=== PATIENT | female | born 1995 | race Caucasian/White ===

== ENCOUNTER 2018-09-09 08:00 | Inpatient (IN) | payer OTHER ==
[~2018-09-09] VITALS: Ht 154.9 cm; Wt 67.8 kg
[2018-09-09 08:42] VITALS: Ht 154.9 cm; Wt 67.8 kg
[2018-09-09 09:01] VITALS: BP 123/75; PULSE 102; RESP 19
[2018-09-09] MEDS ORDERED: LACTATED RINGER'S 1,000 ML IV PRN ×2 (09:09→09:53)
[2018-09-09] MEDS ORDERED: LACTATED RINGER'S 1,000 ML IV SCH ×2 (09:13→12:51)
[2018-09-09] MEDS ORDERED: LIDOCAINE 1% (MPF) 30 ML INJ INJ PRN (09:30)
[2018-09-09] MEDS ORDERED: OXYTOCIN 30 UNITS/LR 500 ML IV SCH ×3 (09:30→12:51)
[2018-09-09] MEDS ORDERED: OXYTOCIN 30 UNITS/LR 500 ML IV PRN ×2 (09:30→13:00)
[2018-09-09] MEDS ORDERED: MISOPROSTOL 200 MCG TAB PR PRN ×2 (09:30→13:00)
[2018-09-09] MEDS ORDERED: METHYLERGONOVINE 0.2 MG INJ IM PRN ×2 (09:30→13:00)
[2018-09-09] MEDS ORDERED: CARBOPROST 250 MCG INJ IM PRN ×2 (09:30→13:00)
[2018-09-09] MEDS ORDERED: PREN-93 PO (09:59)
[2018-09-09] MEDS ORDERED: IBUPROFEN 600 MG TAB PO PRN (10:00)
[2018-09-09] MEDS ORDERED: MINERAL OIL LIGHT 10 ML VIAL TOP ONE (10:00)
[2018-09-09] MEDS ORDERED: CEFAZOLIN 2 GM/50 ML (PMX) 50 ML IVPB ONE (11:30)
--- NOTE | 2018-09-09 11:37 | PREAC ---
Date/Time of Note Date/Time of Note DATE: 09/09/18 TIME: 11:36 Anesthesia Eval and Record Evaluation Time Pre-Procedure Interview DATE: 09/09/18 TIME: 11:36 Age 23 Sex female NPO: 8 hrs Preoperative diagnosis IUP Planned procedure Csection Past Medical History Past Medical History: None Surgery & Anesthesia Issues No known issue Meds Anticoagulation: No Beta Rene within 24 hr: No Reason Beta Rene not given: Pt. not on B-Rene Reported Medications Vit No.124/Iron/FA ( Vitamin Tablet) 1 Each Tablet, 1 EACH PO DAILY, TAB 09/09/18 Current Medications Lidocaine (Xylocaine 1% (Mpf)) 30 ml ONCE PRN INJ .EPISIOTOMY; Start 09/09/18 at 09:30 Oxytocin/Lactated Ringer's 500 ml @ 500 mls/hr ONCE POST IV ; Start 09/09/18 at 09:30 Oxytocin/Lactated Ringer's 500 ml @ 125 mls/hr POST IV ; Start 09/09/18 at 09:30 Oxytocin/Lactated Ringer's 500 ml @ 0 mls/hr ONCE PRN IV .VAGINAL BLEEDING; Start 09/09/18 at 09:30 Methylergonovine Maleate (Methergine) 0.2 mg ONCE PRN IM .VAGINAL BLEEDING; Start 09/09/18 at 09:30 Carboprost Tromethamine (Hemabate) 250 mcg ONCE PRN IM .VAGINAL BLEEDING; Start 09/09/18 at 09:30 Misoprostol (Cytotec) 1,000 mcg ONCE PRN AR .VAGINAL BLEEDING; Start 09/09/18 at 09:30 Lactated Ringer's 1,000 ml @ 2,000 mls/hr Q30M PRN IV .ANESTHESIA; Start 09/09/18 at 09:09 Lactated Ringer's 1,000 ml @ 125 mls/hr Q8H IV Last administered on 09/09/18at 09:16; Admin Dose 125 MLS/HR; Start 09/09/18 at 09:13 Ibuprofen (Motrin) 600 mg ONCE PRN PO .PAIN 1-5; Start 09/09/18 at 10:00 Lactated Ringer's 1,000 ml @ 2,000 mls/hr Q30M PRN IV .ANESTHESIA Last administered on 4/15/19at 10:57; Admin Dose 2,000 MLS/HR; Start 09/09/18 at 09:53 Misoprostol (Cytotec 50 Mcg Capsule) 50 mcg Q4 VAG ; Start 09/09/18 at 13:00 Cefazolin Sodium/ Dextrose 50 ml @ 100 mls/hr ONCE ONCE IVPB ; Start 09/09/18 at 11:30; Stop 09/09/18 at 11:59 Meds reviewed: Yes Allergies Coded Allergies: No Known Allergy (Unverified , 09/09/18) Allergies Reviewed: Yes Labs/Studies Labs Reviewed: Reviewed by anesthesiologist Result Diagram: 09/09/18 0910 Laboratory Tests 09/09/18 09:10 Blood Bank Test 09/09/18 09:10 Antibody Screen NEGATIVE Blood Type AB POSITIVE Rh Immune Globulin Candidate NO test: Positive Studies: ECG Pre-procedure Exam Last vitals Vital Signs Date Temp Pulse Resp B/P (MAP) Pulse Ox O2 O2 Flow FiO2 Time Delivery Rate 09/09/18 98.8 102 19 123/75 Room Air 09:01 (91) Airway: Adequate mouth opening, Adequate thyromental dist Mallampati: Mallampati II Teeth: Normal Lung: Normal Heart: Normal ASA Physical Status ASA physical status: 2 Emergency: None Planned Anesthetic Neuraxial: Spinal Planned Pain Management Sub-arachniod narcotics, Parenteral pain med Pre-operative Attestations Prior to commencing anesthesia and surgery, the patient was re-evaluated, there was verification of: *The patient's identity *The results of appropriate recent lab work and preoperative vital signs *The above evaluation not changing prior to induction *Anesthetic plan, risk benefits, alternative and complications discussed with patient/family; questions answered; patient/family understands, accepts and wishes to proceed. MELVIN LAL MD Sep 09, 2018 11:37
[2018-09-09] MEDS ORDERED: morphine SULFATE/PF (10 MG/10 ML) INJ ONE (11:45)
[2018-09-09] MEDS ORDERED: OXYTOCIN 10 UNIT INJ ONE (11:45)
[2018-09-09] MEDS ORDERED: ONDANSETRON 4 MG INJ ONE (11:45)
[2018-09-09] MEDS ORDERED: PHENYLephrine 10 MG INJ ONE (11:46)
--- NOTE | 2018-09-09 12:48 | PREOPHP ---
DATE OF ADMISSION: 09/09/2018 HISTORY OF PRESENT ILLNESS: This is a 23-year-old female, 1, para 0 with an EDC of 9. Patient had seen me for care for late and she came in late in her and at this time she has all her laboratory testing with a 3-hour GTT and any other tests that was perfo rming . GBS is negative. The patient has been scheduled today for induction due to the pre gnancy was passed 3 days and she is only 5 feet tall. The patient had an ultrasound just done this t ngoc for estimation of the baby's weight, which was assessed at over 9 pounds and she was advised for a section due to the patient's height is only 5 feet and baby's estimated as 9 pounds on the cervical exam she was fingertip and 50% effaced and the baby was -3. Membranes were intact. EXTREMITIES: Normal. The patient physical examination after review of her medical condition, there is no medical, surgical condition in her past. There is no medical antecedents. REVIEW OF SYSTEMS: Noncontributory. FAMILY HISTORY: Hypertension. ALLERGIES: She is not allergic to any medication. SOCIAL HISTORY: She does not drink or smoke. PHYSICAL EXAMINATION: VITAL SIGNS: Blood pressure is normal 120/80, pulse is 80, respirations 16. She is afebrile. HEAD AND NECK: Normal. CHEST: Clear. HEART: Normal sinus rhythm. LUNGS: Clear. BREASTS: Soft, nontender, no masses. ABDOMEN: Soft. Uterus is at term with a large presentation. Normal heart tones. Pelvic exam ination again fingertip dilated, 50% effaced, membranes intact and -3 station. EXTREMITIES: Normal with normal pulses and no edema. Normal reflexes. DIAGNOSIS: 40 and 3 days of with CPD she is undergoing with a macrosomic child. She is un dergoing a primary section. She has been advised of the possible risks and possible complic ations of the procedure with her alternatives and options. Written information was provided. She calero d no more questions and agreed to go ahead with the procedure with full understanding and no more que stions. Dictated By: KRISTOPHER HARRINGTON/MATT Conf#: [id number] DID#: [id number] CC: KRISTOPHER FANG MD;*End*
[2018-09-09] MEDS ORDERED: MISOPROSTOL 50 MCG CAPSULE VAG SCH (13:00)
[2018-09-09] MEDS ORDERED: METHYLERGONOVINE 0.2 MG TAB PO PRN (13:00)
[2018-09-09] MEDS ORDERED: CEFAZOLIN 2 GM/50 ML (PMX) 50 ML IVPB SCH (13:00)
[2018-09-09] MEDS ORDERED: LANOLIN HPA 1 PKT TOP PRN (13:00)
[2018-09-09] MEDS ORDERED: HYDROCODONE/APAP (5/325) TAB PO PRN (13:00)
[2018-09-09] MEDS ORDERED: NA PHOSPHATE/BIPHOS 133 ML ENEMA PR PRN (13:00)
--- NOTE | 2018-09-09 13:02 | SIPON ---
Date/Time of Note Date/Time of Note DATE: 09/09/18 TIME: 13:00 Operative Report Preoperative Diagnosis term Macrosomia Short maternal height CPD Postoperative Diagnosis Same Baby boy 9 8 pound 13 ounces Operation/Procedure Performed Primary low segment transverse section Surgeon see signature line customer support assistant Dr. VARGAS SAM Anesthesia: spinal Estimated blood loss: other Transfusion Required none Specimen Placenta Grafts/Implants none Complications none KRISTOPHER FANG MD Sep 09, 2018 13:02
[2018-09-09] MEDS ORDERED: OXYTOCIN 30 UNITS/LR 500 ML IV ONE (13:05)
[2018-09-09] MEDS: OXYTOCIN 30 UNITS/LR 500 ML IV SCH ×2 (13:24→18:22)
--- NOTE | 2018-09-09 14:21 | PAC ---
Date/Time of Note Date/Time of Note DATE: 09/09/18 TIME: 14:21 Post-Anesthesia Notes Post-Anesthesia Note Last documented vital signs Vital Signs Date Temp Pulse Resp B/P (MAP) Pulse Ox O2 O2 Flow FiO2 Time Delivery Rate 09/09/18 98.8 102 19 123/75 Room Air 09:01 (91) Activity: WNL Respiratory function: WNL Cardiovascular function: WNL Mental status: Baseline Pain reasonably controlled: Yes Hydration appropriate: Yes Nausea/Vomiting absent: Yes Comments BP:112/56, P:88, Spo2:100%, T:98,9 MELVIN LAL MD Sep 09, 2018 14:21
[2018-09-09] MEDS ORDERED: DIPHENHYDRAMINE 50 MG INJ IV PRN (14:30)
[2018-09-09] MEDS ORDERED: KETOROLAC 30 MG INJ IV PRN (14:30)
[2018-09-09] MEDS ORDERED: NALOXONE (0.4 MG/ML) INJ IV PRN (14:30)
[2018-09-09] MEDS ORDERED: morphine 2 MG INJ IV PRN (14:30)
[2018-09-09] MEDS: KETOROLAC 30 MG INJ IV SCH ×3 (14:36→23:03)
[2018-09-09 15:20] VITALS: BP 106/61; PULSE 77; RESP 18
--- NOTE | 2018-09-09 15:27 | OPR ---
DATE OF OPERATION: 09/09/2018 Primary low segment transverse section. PREOPERATIVE DIAGNOSES: 1. Term , macrosomia, short maternal height and CPD. POSTOPERATIVE DIAGNOSES: 1. Term , macrosomia short maternal height and CPD. 2. Baby boy, 9, 8 pounds 13 ounces. OPERATION PERFORMED: Primary low segment transverse section. SURGEON: Kristopher Fang MD [employer] WORKER: Anjali Claire MD ANESTHESIOLOGIST: Dr. Wolf. ANESTHESIA: Spinal. PROCEDURE: The patient was given a spinal anesthesia, placed in the supine position. The Newton cath eter had been placed in the bladder. The abdomen was prepped and draped. A transverse incision was made suprapubically 2 cm up the pubic bone. The abdomen was opened in layers without difficulties. The abdominal cavity was reached. The lower uterine segment was identified. The bladder flap was ma de. The segment was very thin. An incision was made of the segment area and the incision was increa sed laterally on either side for about 3 inches. The amniotic fluid was clear. The baby's head was first tried to deliver with the vacuum that did not work and then we took the vacuum out, repositione d the baby's head and he came out normally with the pressure of the fundus. The cord was clamped and cut and the baby was handed over to the service rig operator team and the cord blood was obtained. The edd centa was removed. The uterus was swabbed out. The cervix was opened with a finger and then I wang ed gloves and cleaned out the uterus and closed the uterus in 2 layers using #0 PDS looped sutures im bedding the first line of suture. One stitch with an 0 MH chromic suture was placed for further coa gulation. Good hemostasis was achieved. Both tubes and ovaries were normal. The uterus was normal. The abdominal cavity was cleaned out and a piece of Surgicel was placed on the area of the incision . The peritoneum was closed with a 2-0 Vicryl suture. The fascia was closed with an 0 MH suture and 2-0 Vicryl for the subcutaneous tissue, and 3-0 Monocryl subcuticular to the skin. The patient tole rated the procedure well and left the OR awake and stable. Sponge counts and instrument counts were correct. Intravenous antibiotics were given for prophylaxis. Blood loss was minimal and the urine w as clear at the end of the procedure. Dictated By: KRISTOPHER HARRINGTON/MATT Conf#: [id number] DID#: [id number] CC: KRISTOPHER FANG MD;*EndCC*
[2018-09-09] MEDS: CEFAZOLIN 2 GM/50 ML (PMX) 50 ML IVPB SCH (18:19)
[2018-09-09 20:00] VITALS: BP 103/60; PULSE 82; RESP 20
[2018-09-09] MEDS: SENNA/DOCUSATE NA (8.6MG/50MG) TAB PO SCH (21:00)
[2018-09-10] MEDS: OXYTOCIN 30 UNITS/LR 500 ML IV SCH ×2 (02:16→06:17)
[2018-09-10] MEDS: CEFAZOLIN 2 GM/50 ML (PMX) 50 ML IVPB SCH ×2 (02:54→09:38)
[2018-09-10 04:24] VITALS: BP 95/52; PULSE 85; RESP 20
[2018-09-10] MEDS: KETOROLAC 30 MG INJ IV SCH ×3 (06:16→18:19)
[2018-09-10 08:00] VITALS: BP 97/57; PULSE 67; RESP 20
[2018-09-10] MEDS: SENNA/DOCUSATE NA (8.6MG/50MG) TAB PO SCH ×2 (09:37→21:36)
--- NOTE | 2018-09-10 10:41 | PN ---
Date/Time of Note Date/Time of Note DATE: 09/10/18 TIME: 10:39 Assessment/Plan Lines/Catheters IV Catheter Type (from Nrsg): Peripheral IV Subjective 24 Hr Interval Summary Day 1 post afebrile Feels good Breast-feeding Incision dry Uterus contracted Lochia normal Constitutional: no complaints Feeding: advancing diet Pain Control: mild Detailed Summary Eyes: no complaints ENT: no complaints Respiratory: no complaints Cardiovascular: no complaints Gastrointestinal: no complaints Genitourinary: no complaints Musculoskeletal: no complaints Skin: no complaints Neurologic: no complaints Endocrine: no complaints Lymphatic: no complaints Psychological: no complaints, nl mood/affect Immunologic: no complaints Exam/Review of Systems Vital Signs Vitals Vital Signs Date Temp Pulse Resp B/P (MAP) Pulse Ox O2 O2 Flow FiO2 Time Delivery Rate 09/10/18 98.7 85 20 95/52 (66) 98 Room Air 04:24 Intake and Output 09/09/18 09/09/18 09/10/18 1515:00 23:00 07:00 IntakeIntake Total 2000 ml 500 ml OutputOutput Total 1168 ml 500 ml BalanceBalance 832 ml 0 ml Exam Constitutional: alert, oriented, well developed Psych: no complaints, nl mood/affect Head: normocephalic, atraumatic Eyes: nl conjunctiva, EOMI, nl lids, nl sclera ENMT: nl external ears & nose, nl lips & teeth, nl nasal mucosa & septum, muco sa pink and moist Neck: supple, non-tender Respiratory: clear to auscultation, normal air movement Cardiovascular: regular rate and rhythm, nl pulses Gastrointestinal: soft, nl liver, spleen, non-tender Musculoskeletal: nl extremities to inspection, nl gait and stance Extremities: normal pulses Neurological: EMBROIDERY SPECIALIST II-XII intact, nl mental status, nl speech, nl strength Skin: nl turgor, rash or lesions Lymph: nl lymph nodes Results Result Diagram: 09/10/18 0814 KRISTOPHER FANG MD Sep 10, 2018 10:41
[2018-09-10 12:29] VITALS: BP 90/50; PULSE 82; RESP 20
[2018-09-10 16:00] VITALS: BP 94/48; PULSE 75; RESP 18
[2018-09-10] MEDS: HYDROCODONE/APAP (5/325) TAB PO PRN (18:20)
[2018-09-10 19:45] VITALS: BP 102/66; PULSE 77; RESP 17
[2018-09-10] MEDS: IBUPROFEN 800 MG TAB PO SCH (21:37)
[2018-09-11] MEDS ORDERED: IBUPROFEN 800 MG TAB PO SCH (01:00)
[2018-09-11 03:33] VITALS: BP 95/51; PULSE 70; RESP 17
[2018-09-11] MEDS: IBUPROFEN 800 MG TAB PO SCH ×3 (05:34→21:58)
[2018-09-11 08:06] VITALS: BP_SYST 95; BP_SYST 97; BP_DIAS 46; BP_DIAS 57; PULSE 67; PULSE 81; RESP 18
[2018-09-11] MEDS: SENNA/DOCUSATE NA (8.6MG/50MG) TAB PO SCH ×2 (09:08→21:57)
[2018-09-11] MEDS: HYDROCODONE/APAP (5/325) TAB PO PRN (11:55)
[2018-09-11 16:00] VITALS: BP 94/50; PULSE 77; RESP 19
--- NOTE | 2018-09-11 19:01 | PN ---
Date/Time of Note Date/Time of Note DATE: 09/11/18 TIME: 18:59 OB Subjective Subjective Subjective POD#1 Patient is doing well. She denies nausea, vomiting, shortness of breath, chest pain, headache. She has been ambulating without difficulty, tolerating regular diet. Pain is well controlled on current medications OB Objective Objective Objective Vital Signs Date Temp Pulse Resp B/P (MAP) Pulse Ox O2 O2 Flow FiO2 Time Delivery Rate 09/11/18 97.8 77 19 94/50 (65) Room Air 16:00 09/11/18 08:06 General: AAO X 3, comfortable, NAD, appropriate mood and affect. ABD: +BS. Soft, non-tender. Uterus 2 cm below umbilicus Incision: Clear, dry, intact. No erythema, drainage or induration. Flank: No CVA tenderness (B/L) LE: Mild edema. No clubbing, cyanosis, thigh or calf tenderness (B/L). Homans 'sign is negative Laboratory Tests Test 09/10/18 06:35 09/10/18 08:14 Lab Scanned Report REFERENCE LAB [id number] White Blood Count 9.7 10^3/ul Red Blood Count 3.42 10^6/ul Hemoglobin 10.1 g/dl Hematocrit 30.9 % Mean Corpuscular Volume 90.4 fl Mean Corpuscular Hemoglobin 29.5 pg Mean Corpuscular Hemoglobin Concent 32.7 g/dl Red Cell Distribution Width 13.3 % Platelet Count 181 10^3/UL Mean Platelet Volume 11.7 fl Immature Granulocytes % 0.400 % Neutrophils % 77.0 % Lymphocytes % 14.4 % Monocytes % 7.9 % Eosinophils % 0.1 % Basophils % 0.2 % Nucleated Red Blood Cells % 0.0 /100WBC Immature Granulocytes # 0.040 10^3/ul Neutrophils # 7.5 10^3/ul Lymphocytes # 1.4 10^3/ul Monocytes # 0.8 10^3/ul Eosinophils # 0.0 10^3/ul Basophils # 0.0 10^3/ul Nucleated Red Blood Cells # 0.0 10^3/ul OB Assessment/Plan Other plan: 23-year-old 1 para 1001 primary s/p delivery at 40 weeks and 3 days. POD#1 - AF, VSS - Baby is doing well, at bed side. She is bonding well - Contraception methods with R/B/A/FR discussed - Continue care MARIELA CEDILLO Sep 11, 2018 19:01
[2018-09-11 20:25] VITALS: BP 102/53; PULSE 68; RESP 18
[2018-09-12 03:50] VITALS: BP 99/57; PULSE 67; RESP 17
[2018-09-12] MEDS: IBUPROFEN 800 MG TAB PO SCH ×2 (05:46→13:03)
[2018-09-12 08:30] VITALS: BP 99/50; PULSE 73; RESP 18
[2018-09-12] MEDS ORDERED: MEASLES,MUMPS,RUBELLA VACCINE INJ SC* ONE (09:00)
[2018-09-12] MEDS ORDERED: DIPHTH/TET/ACEL PERTUSS (ADULT) 0.5 ML VIAL IM* ONE (09:00)
[2018-09-12] MEDS: SENNA/DOCUSATE NA (8.6MG/50MG) TAB PO SCH (09:00)
--- NOTE | 2018-09-12 11:27 | PD.PPDC ---
ALUMINIZER Discharge Instruction Condition [id number] Patient Condition: Abhph7b Good Diet Huudd0La Diet: Wbiof2d Resume Regular Diet Activity/Restrictions [id number] Activity: Csdnm8b Normal Activity May Shower Ovzab0Sh Restrictions: Rhtsk0y No Exercising No Lifting No Driving No Sexual Activity Nothing in the Vagina No [place] No Tampons, douche Wound/Drain Care Instructions [id number] Wound/Drain Care Instructions: Vkgan7t Wash with soap and water Keep clean and dry Follow-up Follow-up with Physician: 1, Week/Weeks Return to clinic for Nykls1Fs FRACTIONATION SUPERVISOR Instructions: Xxolg8o Fever greater than 101 Chills Worsening abdominal pain Excessive Vaginal Bleeding More than 2 pads per hour Unable to tolerate diet Quxtw9Sh OB Instructions: Lbqjf3n Breast Tenderness Depression Blurried Vision Headache Fspet9Cf Surgical Instructions: [id number] Incisional Drainage Incisional Redness KRISOTPHER FANG MD Sep 12, 2018 11:27
--- NOTE | 2018-09-12 11:34 | DS ---
Date/Time of Note Date/Time of Note DATE: 09/12/18 TIME: 11:28 Discharge Summary Admission/Discharge Info Admit Date/Time Sep 09, 2018 at 08:32 Discharge Date/Time 09/12/2018 Discharge Diagnosis Term Macrosomia CPD Patient Condition: Good Procedures Primary low segment transverse section Hx of Present Illness 23-year-old female 1 para 0 with a term admitted for induction of labor due to the size and ultrasound was obtained that estimated weight of 9 pounds. Considering that the patient was only 5 feet tall with this size baby and floating station we advised a primary for CPD instead of induction. Hospital Course The patient did very well after surgery she was ambulatory and she was tolerating diet on the first day postop. the second day postoperatively she was voiding and passing gases with a bowel movement. On the third day postop she was ambulatory with pain controlled with oral medications feeling better tolerating diet, voiding and passing gases. The patient is being discharged on her third day with Tylenol 3 and ibuprofen and vitamins. Instructions were given to see me at any time or see me in 1 week. Instructions were given of put to do and not to do at home and how to take care of her incision Her laboratory testing were near normal after the section Home Meds Reported Medications Vit No.124/Iron/FA ( Vitamin Tablet) 1 Each Tablet, 1 EACH PO DAILY, TAB 09/09/18 Primary Care Provider Not On Staff Doctor KRISTOPHER FANG MD Sep 12, 2018 11:34
--- NOTE | 2018-09-13 13:47 | DELSUM ---
Delivery Summary A-C Datetime Report Generated by CPN: 09/13/2018 13:46 DELIVERY PERSONNEL Event Staff Member: Sebunnya, Phoebe MATERNAL INFORMATION Delivery Anesthesia: Spinal Medications in Delivery: SEE ANESTHIA RECORD Delivery QBL (ml): 600 Placenta Cultured: No Maternal Complications: None LABOR SUMMARY EDC: 09/07/2018 00:00 No. Babies in Womb: 1 Attempted: No Labor Anesthesia: None LABOR INFORMATION Reason for Induction: Not Applicable Reason for Induction- Other: 40.2 weeks Oxytocin: N/A Group B Beta Strep: Negative Antibiotics # of Doses: 1 Antibiotics Time of Last Dose: 09/09/2018 11:45 Steroids Given: None Reason Steroids Not Administered: Not Applicable MEMBRANES Membranes Rupture Method: Artificial Rupture of Membranes: 09/09/2018 12:16 Length of Rupture (hr): 0.02 Amniotic Fluid Color: Clear Amniotic Fluid Amount: Moderate Amniotic Fluid Odor: Normal STAGES OF LABOR Stage 3 hr: 0 Stage 3 min: 1 CSECTION DELIVERY Primary Indication: MACROSOMIA Secondary Indication: Other Other Secondary Indication: CPD CSection Urgency: Elective CSection Incidence: Primary Labor: No Labor Elective: Elective CSection Incision: Lower Uterine Transverse BABY A INFORMATION Infant Delivery Date/Time: 09/09/2018 12:17 Method of Delivery: Born in Route : No : N/A Forceps: N/A Vacuum Extraction: Successful Shoulder Dystocia : N/A ASSISTED DELIVERY BABY A Indication for Assisted Delivery: CPD P C/S Catheter Prior to Procedure: Yes Station Vacuum/Forcep Apply: N/A Position Vacuum/Forcep Apply: Left Occipital Anterior Vacuum Number of Pulls: 1 Vacuum Number of PopOffs: 0 Reduce Pressure btwn Ctx: N/A Vacuum Electronic Imaging System Operator: KIWI/ [id number]/2020-04-30 Total Time Vacuum Applied: 1 Type of Forceps: N/A SHOULDER DYSTOCIA BABY A Infant Delivery Date/Time: 09/09/2018 12:17 PRESENTATION/POSITION BABY A Presentation: Cephalic Cephalic Presentation: Vertex Vertex Position: Left Occipital Anterior Breech Presentation: N/A PLACENTA INFORMATION BABY A Placenta Delivery Time : 09/09/2018 12:18 Placenta Method of Delivery: Manual Removal Placenta Status: Delivered SCORES BABY A Heart Rate 1 min: >100 bpm Resp Effort 1 min: Good Cry Reflex Irritability 1 min: Cough/Sneeze/Pulls Away Muscle Tone 1 min: Active Motion Color 1 min: Body [place], Extremit Blue Resuscitation Effort 1 min: Tactile Stimulation SCORE 1 MIN: 9 Heart Rate 5 min: >100 bpm Resp Effort 5 min: Good Cry Reflex Irritability 5 min: Cough/Sneeze/Pulls Away Muscle Tone 5 min: Active Motion Color 5 min: Body [place], Extremit Blue Resuscitation Effort 5 min: Tactile Stimulation SCORE 5 MIN: 9 INFORMATION BABY A Gestational Age at Delivery: 40.2 Gestational Status: Full Term- 39- 40.6 Weeks Infant Outcome : Liveborn Infant Condition : Stable Infant Sex: Male IDENTIFICATION/MEDS BABY A ID Band Number: [id number] ID Band Location: Right Leg; Left Arm Sensor Applied: Yes Sensor Number: [id number] Sensor Location : Cord Clamp Vitamin K Given : Not Given Erythromycin Given: Not Given WEIGHT/LENGTH BABY A Birthweight (gm): 4000 Weight (lb): 8 Weight (oz): 13 Infant Length (in): 19.50 Length (cm): 49.53 CORD INFORMATION BABY A No. Cord Vessels: 3 Nuchal Cord : N/A Nuchal Cord- Other: 0 True Knot: 0 Cord Blood Taken: Yes Banking/Donate Info: no Suction: Mouth; Nose ASSESSMENT BABY A Infant Complications: None Physical Findings at Delivery: Within Normal Limits Infant Respirations: Appears Normal Glass Blower/ALS Called : No Infant Care By: NAVIN TRINIDAD Transferred To: Remains with Mother
== END 2018-09-12 13:46 | disposition home or self-care (01) | DRG 788 ==
LOC: L-D 08:32 → PP1 15:10
PROVIDERS: ADMIT Obstetrics & Gynecology; ATTEND Obstetrics & Gynecology
PROC: 10D00Z1 Extraction of Products of Conception, Low, Open Approach (ICD-10-PCS; principal; 2018-09-09 11:30)
DX: O33.5XX0 Maternal care for disproportion due to unusually large fetus, not applicable or unspecified (principal); Z3A.40 40 weeks gestation of pregnancy; Z37.0 Single live birth; Z23 Encounter for immunization
CPT/HCPCS: 76815; 76818; 85025; 85610; 85730; 86592; 86850; 86900; 86901; 87340; 90715; 99464; J0690; J1885; J2274; J2405; J2590; J7120